=== PATIENT | female | born 1960 | race Caucasian/White ===

== ENCOUNTER 2018-06-26 12:49 | Inpatient (IN) | payer BC ==
[2018-06-26] MEDS ORDERED: NA CHLORIDE 0.9% 1,000 ML ONE (14:01)
[2018-06-26] MEDS ORDERED: ONDANSETRON 4 MG/2 ML VIAL ONE (14:05)
[2018-06-26 14:14] LABS: Absolute Lymphocytes (CBC) 1.6 K/uL (0.7-4.9); Absolute Monocytes 0.9 K/uL (0.1-1.3); Absolute Neutrophil 6.7 K/uL (1.8-8.0); Basophils % 0.6 % (0-1.3); Eosinophils % 0.2 % (0-4.4); Hematocrit 38.2 % (36.0-45.0); Lymphocytes % 17.2 % (15.3-44.8); MCH 31.3 pg (27.0-35.0); MCV 91.9 fL (80-100); MPV 8.1 fL (7.6-11.3); Monocytes % 9.5 % (3.3-12.3); RBC Red Blood Cell Count 4.15 M/uL (3.86-4.86)
[2018-06-26 14:18] LABS: Protime INR 1.11
[2018-06-26 14:20] LABS: Urine Bacteria 20-50 /HPF (<20); Urine Culture Reflex Order REFLEXED; Urine RBC <5 /HPF (NONE SEEN)
[2018-06-26 14:35] LABS: ALT/SGPT 37 U/L (12-78); AST/SGOT 19 U/L (15-37); Albumin 2.4 g/dL (3.4-5.0); Alkaline Phosphatase 119 U/L (45-117); BUN Blood Urea Nitrogen 15 mg/dL (7-18); Bicarbonate 25 mmol/L (21-32); Bilirubin Direct 0.1 mg/dL (0-0.2); Bilirubin Total 0.4 mg/dL (0.2-1.0); Creatine Phosphokinase 48 U/L (26-192); Glucose Level 331 mg/dL (74-106); Lipase 106 U/L (73-393); Potassium 3.2 mmol/L (3.5-5.1); Protein, Total 7.1 g/dL (6.4-8.2); Sodium Level 128 mmol/L (136-145); Troponin (Emerg Dept Use Only) < 0.02 ng/mL (0.0-0.045)
--- NOTE | 2018-06-26 14:38 | RAD REPORT ---
EXAM DESCRIPTION: RAD - Chest Single View - 06/26/2018 2:27 pm CLINICAL HISTORY: Delays, shortness of breath COMPARISON: None. TECHNIQUE: AP portable chest image was obtained 1409 hours . FINDINGS: Lung volumes are low. Linear stranding in each base is favored to be atelectasis. Scarring is possible as well. Trachea is midline. Heart and vasculature are normal. No measurable pleural eff usion and no pneumothorax. No acute bony abnormality seen. No acute aortic findings suspected. IMPRESSION: No acute cardiopulmonary process. Scarring or atelectasis present in each lung base.
[2018-06-26 14:58] LABS: Blood Morphology Comment NOT SEEN (NOT SEEN); Platelet Estimate ADEQ; Platelets, Giant NOTED; Polychromasia SLIGHT
[2018-06-26] MEDS ORDERED: INSULIN -REGULAR HUMAN 50 UNIT/0.5 ML ML ONE (15:02)
[2018-06-26 15:06] LABS: Urine Blood 2+ (NEG); Urine Glucose 2+ (NEG); Urine Protein 2+ (NEG); Urine Specific Gravity 1.015 (1.005-1.030)
--- NOTE | 2018-06-26 15:35 | ER ---
Nurse's Notes [facility] Name: Linda Jeffries Age: 58 yrs Sex: Female : 1960 Arrival Date: 06/26/2018 Time: 12:52 Bed 19 Private MD: Noah Justin Diagnosis: Acute tubulo-interstitial nephritis;Hyperglycemia, unspecified Presentation: 06/26 13:07 Presenting complaint: Patient states: Sent by Dr. Justin's office for possible DKA. Pt ss reports she has a really bad UTI/ Kidney infection and has a large amount of ketones in her urine. Pt was sent over for STAT lab work that was obtained and had Rocephin 1G IM at PCP's office. Transition of care: patient was not received from another setting of care. Onset of symptoms was June 22, 2018. Risk Assessment: Do you want to hurt yourself or someone else? Patient reports no desire to harm self or others. Initial Sepsis Screen: Does the patient meet any 2 criteria? RR > 20 per min. HR > 90 bpm. Does the patient have a suspected source of infection? Yes: Dysuria/Frequency/Urgency/UTI. Care prior to arrival: None. 13:07 Method Of Arrival: Ambulatory ss 13:07 Acuity: RADHA 2 ss Historical: - Allergies: 13:09 PENICILLINS; ss 13:09 Sulfa (Sulfonamide Antibiotics); ss - PMHx: 16:51 Diabetes - IDDM; hb - Immunization history:: Adult Immunizations up to date. - Social history:: Smoking status: Patient/guardian denies using tobacco. - Ebola Screening: : Patient denies exposure to infectious person Patient denies travel to an Ebola-affected area in the 21 days before illness onset. Screenin:45 Abuse screen: Denies threats or abuse. Denies injuries from another. Nutritional ca1 screening: No deficits noted. Tuberculosis screening: No symptoms or risk factors identified. Fall Risk Total Bustos Fall Scale indicates No Risk (0-24 pts). Assessment: 13:30 General: Appears in no apparent distress. Behavior is calm, cooperative. Pain: Denies ca1 pain. Neuro: Level of Consciousness is awake, alert, obeys commands, Oriented to person, place, time, situation. Cardiovascular: Capillary refill < 3 seconds Patient's skin is warm and dry. Respiratory: Airway is patent Respiratory effort is even, unlabored, Respiratory pattern is regular, symmetrical. GI: No signs and/or symptoms were reported involving the gastrointestinal system. : No signs and/or symptoms were reported regarding the genitourinary system. EENT: No signs and/or symptoms were reported regarding the EENT system. Derm: Skin is intact, is healthy with good turgor. Musculoskeletal: No signs and/or symptoms reported regarding the musculoskeletal system. 14:30 Reassessment: Patient appears in no apparent distress at this time. No changes from hb previously documented assessment. Patient and/or family updated on plan of care and expected duration. Pain level reassessed. Patient is alert, oriented x 3, equal unlabored respirations, skin warm/dry/pink. 15:30 Reassessment: Patient appears in no apparent distress at this time. No changes from hb previously documented assessment. Patient and/or family updated on plan of care and expected duration. Pain level reassessed. Patient is alert, oriented x 3, equal unlabored respirations, skin warm/dry/pink. Admission ordered, awaiting room assignment at this time. Family remains at [facility]. Vital Signs: 13:09 BP 127 / 85; Pulse 111; Resp 21; Temp 98.0(O); Pulse Ox 98% on R/A; Weight 93.89 kg; ss Height 5 ft. 7 in. (170.18 cm); Pain 8/10; 14:07 BP 112 / 70; Pulse 101; Resp 18; Pulse Ox 98% on R/A; ca1 15:30 BP 129 / 78; Pulse 96; Resp 18; Pulse Ox 94% on R/A; ca1 16:10 BP 128 / 82; Pulse 80; Resp 15; Pulse Ox 100% on R/A; Pain 0/10; hb 13:09 Body Mass Index 32.42 (93.89 kg, 170.18 cm) ED Course: 12:52 Patient arrived in ED. sb2 12:52 Noah Justin MD is Private Physician. sb2 13:09 Triage completed. ss 13:09 Arm band placed on right wrist. ss 13:11 Deandre Tee MD is Attending Physician. gs 13:15 Joanna Simons, RN is Primary Nurse. hb 13:30 Patient has correct armband on for positive identification. Placed in gown. Bed in low hb position. Call light in reach. Side rails up X 1. 13:55 Initial lab(s) drawn, by ma, sent to lab. First set of blood cultures drawn by ma. 3 Inserted saline lock: 20 gauge in right antecubital area, using aseptic technique. Blood collected. 14:10 EKG done, by environmental sampling technician. reviewed by Deandre Tee MD. 3 14:18 Second set of blood cultures drawn by me, by venipuncture 23G to right ac. 3 14:25 Chest Single View XRAY In Process Unspecified. EDMS 15:30 No provider procedures requiring assistance completed. Patient admitted, IV remains in hb place. 15:33 Cristóbal Garnett MD is Hospitalizing Provider. Administered Medications: 13:45 Drug: NS 0.9% 1000 ml Route: IV; Rate: 1 bolus; Site: right antecubital; ca1 15:30 Follow up: Response: No adverse reaction; IV Status: Completed infusion hb 13:59 Drug: Zofran 4 mg Route: IVP; Site: right antecubital; hb 14:29 Follow up: Response: No adverse reaction ca1 14:57 Drug: Insulin Regular Human 5 units {Co-Signature: maty (Joanna Simons RN).} Route: ca1 Sub-Q; Site: left upper arm; 15:58 Follow up: Response: No adverse reaction; Blood sugar is lowered hb Point of Care Testing: Blood Glucose: 14:03 Blood Glucose: 328 mg/dL; ca1 Ranges: Outcome: 15:34 Decision to Hospitalize by Provider. 17:15 Admitted to Tele accompanied by tech, family with patient, via stretcher, with chart. hb 17:15 Condition: stable 17:15 Instructed on the need for admit, Demonstrated understanding of instructions. 17:20 Patient left the ED. hb Signatures: Dispatcher [employer] EDAR Faiza Silva RN RN Joanna Simons RN RN Sabine Rousseau [facility] Deandre Tee MD MD Rehana Elias [facility] Angelic Reyes 3 Ros Asif RN RN ca1 Joanna rutledge Corrections: (The following items were deleted from the chart) 14:48 13:45 Fall Risk Total Bustos Fall Scale indicates High Risk Score (45 or more points). ca1 Fall prevention measures have been instituted. Side Rails Up X 2 Frequent Obs/Assessments Occuring Family Present and informed to notify staff if the need to leave the bedside As available patient and family educated on Fall Prevention Program and Strategies. ca1
--- NOTE | 2018-06-26 15:35 | EDPHYS ---
Physician Documentation [facility] Name: Linda Jeffries Age: 58 yrs Sex: Female : 1960 Arrival Date: 06/26/2018 Time: 12:52 Bed 19 Private MD: Noah Justin ED Physician Deandre Tee HPI: 06/26 15:18 This 58 yrs old Female presents to ER via Ambulatory with complaints of gs DIABETIC PROBLEM. 15:18 The patient complains of pain in the left low back and right low back. Onset: The gs symptoms/episode began/occurred gradually, 4 day(s) ago, and became worse and became persistent. Modifying factors: The symptoms are alleviated by nothing. the symptoms are aggravated by nothing. Associated signs and symptoms: Pertinent positives: dysuria, fever, nausea, vomiting. Severity of pain: At its worst the pain was moderate in the emergency department the pain is unchanged. The patient has not experienced similar symptoms in the past. The patient has been recently seen by a physician: the patient's primary care provider. Historical: - Allergies: 13:09 PENICILLINS; ss 13:09 Sulfa (Sulfonamide Antibiotics); ss - PMHx: 16:51 Diabetes - IDDM; hb - Immunization history:: Adult Immunizations up to date. - Social history:: Smoking status: Patient/guardian denies using tobacco. - Ebola Screening: : Patient denies exposure to infectious person Patient denies travel to an Ebola-affected area in the 21 days before illness onset. ROS: 15:18 All other systems are negative. gs Exam: 15:18 Head/Face: Normocephalic, atraumatic. Eyes: Pupils equal round and reactive to light, gs extra-ocular motions intact. Lids and lashes normal. Conjunctiva and sclera are non-icteric and not injected. Cornea within normal limits. Periorbital areas with no swelling, redness, or edema. ENT: Nares patent. No nasal discharge, no septal abnormalities noted. Tympanic membranes are normal and external auditory canals are clear. Oropharynx with no redness, swelling, or masses, exudates, or evidence of obstruction, uvula midline. Mucous membranes moist. Neck: Trachea midline, no thyromegaly or masses palpated, and no cervical lymphadenopathy. Supple, full range of motion without nuchal rigidity, or vertebral point tenderness. No Meningismus. Chest/axilla: Normal chest wall appearance and motion. Nontender with no deformity. No lesions are appreciated. 15:18 Respiratory: Lungs have equal breath sounds bilaterally, clear to auscultation and percussion. No rales, rhonchi or wheezes noted. No increased work of breathing, no retractions or nasal flaring. Abdomen/GI: Soft, non-tender, with normal bowel sounds. No distension or tympany. No guarding or rebound. No evidence of tenderness throughout. Skin: Warm, dry with normal turgor. Normal color with no rashes, no lesions, and no evidence of cellulitis. MS/ Extremity: Pulses equal, no cyanosis. Neurovascular intact. Full, normal range of motion. Neuro: Awake and alert, GCS 15, oriented to person, place, time, and situation. Cranial nerves II-XII grossly intact. Motor strength 5/5 in all extremities. Sensory grossly intact. Cerebellar exam normal. Normal gait. 15:18 Constitutional: The patient appears alert, awake. 15:18 Cardiovascular: Rate: tachycardic, Rhythm: regular, Pulses: no pulse deficits are appreciated. 15:18 Back: CVA tenderness, that is moderate, is noted on the right, is noted on the left. 15:18 ECG was reviewed by the Attending Physician. Vital Signs: 13:09 BP 127 / 85; Pulse 111; Resp 21; Temp 98.0(O); Pulse Ox 98% on R/A; Weight 93.89 kg; ss Height 5 ft. 7 in. (170.18 cm); Pain 8/10; 14:07 BP 112 / 70; Pulse 101; Resp 18; Pulse Ox 98% on R/A; ca1 15:30 BP 129 / 78; Pulse 96; Resp 18; Pulse Ox 94% on R/A; ca1 16:10 BP 128 / 82; Pulse 80; Resp 15; Pulse Ox 100% on R/A; Pain 0/10; hb 13:09 Body Mass Index 32.42 (93.89 kg, 170.18 cm) ss MDM: 13:28 Patient medically screened. gs 15:18 Differential diagnosis: pyelonephritis, UTI, pancreatitis, sepsis. Data reviewed: vital gs signs, nurses notes. Counseling: I had a detailed discussion with the patient and/or guardian regarding: the historical points, exam findings, and any diagnostic results supporting the discharge/admit diagnosis, lab results, radiology results, the need for further work-up and treatment in the hospital. Response to treatment: the patient's symptoms have mildly improved after treatment, and as a result, I will admit patient. 06/26 13:27 Order name: Basic Metabolic Panel 06/26 13:27 Order name: Blood Culture Adult (2) 06/26 13:27 Order name: CBC with Diff 06/26 13:27 Order name: CPK; Complete Time: 14:40 06/26 13:27 Order name: Lactate; Complete Time: 14:40 06/26 13:27 Order name: LFT's; Complete Time: 14:40 06/26 13:27 Order name: Lipase; Complete Time: 14:40 06/26 13:27 Order name: Procalcitonin; Complete Time: 15:12 06/26 13:27 Order name: Protime (+inr); Complete Time: 14:40 06/26 13:27 Order name: Troponin (emerg Dept Use Only); Complete Time: 14:40 06/26 13:27 Order name: Urine Microscopic Only; Complete Time: 14:40 06/26 13:28 Order name: Basic Metabolic Panel; Complete Time: 14:40 [facility] 06/26 13:28 Order name: Blood Culture [facility] 06/26 13:35 Order name: Urine Dipstick--Ancillary (enter results); Complete Time: 15:12 06/26 13:27 Order name: Chest Single View XRAY; Complete Time: 14:40 06/26 14:18 Order name: Manual Differential [facility] 06/26 14:28 Order name: Urine Culture [facility] 06/26 15:54 Order name: CBC with Automated Diff EDMS 06/26 15:54 Order name: CBC with Automated Diff EDMS 06/26 15:54 Order name: CBC with Automated Diff EDMS 06/26 15:54 Order name: CBC with Automated Diff EDMS 06/26 15:54 Order name: Comprehensive Metabolic Panel [facility] 06/26 15:54 Order name: Comprehensive Metabolic Panel [facility] 06/26 15:54 Order name: Comprehensive Metabolic Panel [facility] 06/26 15:54 Order name: Comprehensive Metabolic Panel [facility] 06/26 16:12 Order name: Glucose, Ancillary Testing ED[facility] 06/26 16:12 Order name: Glucose, Ancillary Testing EDMS 06/26 13:27 Order name: Fingerstick Glucose; Complete Time: 14:07 06/26 13:27 Order name: Accucheck; Complete Time: 13:59 gs 06/26 13:27 Order name: Cardiac monitoring; Complete Time: 13:59 06/26 13:27 Order name: EKG - Nurse/Tech; Complete Time: 14:47 06/26 13:27 Order name: IV Saline Lock - Large Bore; Complete Time: 13:59 gs 06/26 13:27 Order name: Labs collected and sent; Complete Time: 13:59 gs 06/26 13:27 Order name: O2 Per Protocol; Complete Time: 13:59 06/26 13:27 Order name: O2 Sat Monitoring; Complete Time: 14:01 06/26 13:27 Order name: Urine Dipstick-Ancillary (obtain specimen); Complete Time: 13:59 06/26 15:54 Order name: Consistent Carb (ADA) 1800 Phill EDMS EC:18 Rate is 99 beats/min. Rhythm is regular. GA interval is normal. QRS interval is normal. gs QT interval is normal. T waves are Inverted. Clinical impression: NSR w/ Non-specific ST/T Changes. Interpreted by me. Administered Medications: 13:45 Drug: NS 0.9% 1000 ml Route: IV; Rate: 1 bolus; Site: right antecubital; ca1 15:30 Follow up: Response: No adverse reaction; IV Status: Completed infusion hb 13:59 Drug: Zofran 4 mg Route: IVP; Site: right antecubital; hb 14:29 Follow up: Response: No adverse reaction ca1 14:57 Drug: Insulin Regular Human 5 units {Co-Signature: hb (Joanna Simons RN).} Route: ca1 Sub-Q; Site: left upper arm; 15:58 Follow up: Response: No adverse reaction; Blood sugar is lowered hb Point of Care Testing: Blood Glucose: 14:03 Blood Glucose: 328 mg/dL; ca1 Ranges: Critical Glucose Levels:Adult <50 mg/dl or >400 mg/dl <40 mg/dl or >180 mg/dl Disposition: 06/26/18 15:34 Hospitalization ordered by Cristóbal Garnett for Observation. Preliminary diagnosis are Acute tubulo-interstitial nephritis, Hyperglycemia, unspecified. - Bed requested for Telemetry/MedSurg (observation). - Status is Observation. hb - Condition is Stable. - Problem is new. - Symptoms have improved. UTI on Admission? Yes Signatures: Dispatcher [employer] EDKS Yessenia Auguste RN RN Faiza Silva RN RN Joanna Simons RN RN Deandre Tee MD MD Ros Asif RN RN [facility] Joanna Simons RN Corrections: (The following items were deleted from the chart) 15:34 15:34 Hospitalization Ordered by Cristóbal Garnett MD for Inpatient Admission. Preliminary gs diagnosis is Acute tubulo-interstitial nephritis; Hyperglycemia, unspecified. Bed requested for Telemetry/MedSurg (Inpatient). Status is Inpatient Admission. Condition is Stable. Problem is new. Symptoms have improved. UTI on Admission? Yes. gs 16:33 15:34 06/26/2018 15:34 Hospitalization Ordered by Cristóbal Garnett MD for Observation. dw Preliminary diagnosis is Acute tubulo-interstitial nephritis; Hyperglycemia, unspecified. Bed requested for Telemetry/MedSurg (observation). Status is Observation. Condition is Stable. Problem is new. Symptoms have improved. UTI on Admission? Yes. gs 17:20 16:33 06/26/2018 15:34 Hospitalization Ordered by Cristóbal Garnett MD for Observation. hb Preliminary diagnosis is Acute tubulo-interstitial nephritis; Hyperglycemia, unspecified. Bed requested for Telemetry/MedSurg (observation). Status is Observation. Condition is Stable. Problem is new. Symptoms have improved. UTI on Admission? Yes. dw
[2018-06-26] MEDS ORDERED: ACETAMINOPHEN 500 MG TAB PO PRN (15:48)
[2018-06-26] MEDS: NA CHLORIDE 0.9% 1,000 ML IV SCH (18:09)
[2018-06-26] MEDS: INSULIN -REGULAR HUMAN 50 UNIT/0.5 ML ML SQ SCH ×2 (18:10→21:26)
[2018-06-26] MEDS: ONDANSETRON 4 MG/2 ML VIAL IV PRN (18:10)
[2018-06-26] MEDS: CEFTRIAXONE/SWI 1gm 1 GM/10 ML SYR IVP SCH (18:10)
[2018-06-26] MEDS: ENOXAPARIN 40 MG/0.4 ML SQ SCH (18:10)
[2018-06-26] MEDS ORDERED: POTASSIUM CL SA 10 MEQ TAB PO ONE (19:12)
[2018-06-26] MEDS ORDERED: KCL 20 MEQ/100 mL IVPB 20 MEQ/100 ML BAG IV SCH (20:00)
[2018-06-26] MEDS ORDERED: KETOROLAC 30 MG/ML INJ IV PRN (20:26)
[2018-06-26] MEDS ORDERED: INFLUENZA VACCINE (for 3y+) 0.5 ML DOSE IMVAC ONE (21:00)
[2018-06-27] MEDS: NA CHLORIDE 0.9% 1,000 ML IV SCH ×3 (01:04→22:00)
--- NOTE | 2018-06-27 02:13 | HP ---
Date of Admission: 06/26/2018 Chief Complaint: Abdominal pain, fever, chills. Primary Care Physician: Noah Justin M.D. History Of Present Illness: The patient is a 58-year-old female with past medical history of diabete s, insulin requiring, depression, hyperlipidemia, and hypertension, comes in with sudden onset of fev er, chills, abdominal pain in bilateral flanks, nausea, no vomiting, and high fevers as high as 102. The patient denies any dysuria or hematuria, however, has had history of multiple recurrent UTIs in the past, has seen Urology as well. The patient's symptoms are constant, moderate, and progressively worsening. Therefore, came into the hospital for further evaluation. Upon arrival, the patient was slightly tachycardic. Her workup revealed normal WBC count. She did have some mild electrolyte abn ormalities; however, her procalcitonin was elevated. The patient's urine was positive and showed UTI . She was started on antibiotics and referred for admission. The patient was seen in the ER. She w as awake, alert, and oriented x3, in mild distress. Past Medical History: Diabetes mellitus type 2, insulin requiring, depression, hyperlipidemia, and h ypertension. Past Surgical History: Hysterectomy. Allergies: TO PENICILLIN AND SULFA. Medications: List reviewed. Social History: The patient denies any tobacco use, alcohol use, or illicit drug use. The patient i s and currently employed, works in an office. Has good social support. Independent in her a ctivities of daily living. Family History: The patient denies history of premature coronary artery disease. Review of Systems: A 10-point system reviewed, negative except as per HPI. Physical Examination: Vital Signs: Blood pressure 127/85, pulse 111, respirations 21, temperature 98, and O2 98% on room a ir. General: Awake, alert, and oriented x3, ill-appearing, obese female, in some mild distress. HEENT: Normocephalic, atraumatic. PERRLA. EOMI. Moist mucous membranes. Oropharynx is clear. Co njunctivae anicteric. Neck: Supple. No JVD. Trachea midline. CV: S1, S2. Sinus tachycardia. No murmurs. Peripheral pulses present bilaterally. Respiratory: Clear to auscultation bilaterally. No wheezing or stridor. No use of accessory muscle s. Gastrointestinal: Abdomen is soft. Tenderness to palpation. No rebound or guarding. Bowel sounds are positive. The patient does have some flank tenderness bilaterally. Extremities: No clubbing, cyanosis, or edema. No calf tenderness. Neuro: Cranial nerves 2-12 intact grossly. No focal neurological deficit. Speech is normal. Stren gth is 5/5 in bilateral upper and lower extremities. Skin: No rashes. Normal skin turgor. Psych: Mood is okay. Affect is full. Insight and judgment are good. Laboratory Data: UA shows negative nitrite, 1+ leukocyte esterase, less than 5 rbc's, greater than 5 0 wbc's, 20-50 urine bacteria, 2+ glucose, and 2+ protein. Sodium 128, potassium 3.2, chloride 94, C O2 25, BUN 15, creatinine 1, and glucose 331. Lactate 1.9, calcium 8.7, troponin less than 0.02, alb umin 2.4, lipase 106, and procalcitonin 1.71. INR 1.11. WBC 9.2, H and H 13 and 38.2, platelets 236 , and neutrophils 72%. EKG normal sinus rhythm, rate of 99, some nonspecific T-wave, ST changes. est x-ray personally reviewed shows no acute cardiopulmonary process, scarring or atelectasis present in each lung base. Assessment And Plan: A 58-year-old female with: 1.Systemic inflammatory response syndrome. The patient has a fever of 102, tachypneic at 21 breaths per minute, tachycardic at 111 beats per minute. Normal WBC count; however, procalcitonin is elevat ed at 1.71. Lactate is normal. Source of infection is UTI, pyelonephritis. We will watch for signs of sepsis. We will continue with IV fluid resuscitation, IV antibiotics, and obtain pancultures. 2.Pyelonephritis, acute. Continue with Rocephin and follow up on urine cultures. 3.Hyponatremia. We will start on IV fluids and monitor. 4.Hypokalemia. We will replace and monitor. Check magnesium level. 5.Severe protein-calorie malnutrition. Albumin is 2.4. 6.Diabetes mellitus type 2 with hyperglycemia. We will continue with sliding scale insulin. Resume home dose, not in DKA. 7.Essential hypertension. Resume home medications as appropriate. 8.Major depressive disorder, in remission. Continue SSRI. 9.Hyperlipidemia. Continue statin. 10.Obesity, BMI 32.4. 11.GI and DVT prophylaxis addressed. Admit the patient to Med-Surg, place as inpatient. Length of stay is greater than 2 minutes. NAHOMY Voice ID: [id number]
[2018-06-27 06:01] LABS: Absolute Lymphocytes (CBC) 1.6 K/uL (0.7-4.9); Absolute Monocytes 0.9 K/uL (0.1-1.3); Absolute Neutrophil 3.9 K/uL (1.8-8.0); Basophils % 0.6 % (0-1.3); Eosinophils % 1.4 % (0-4.4); Lymphocytes % 24.3 % (15.3-44.8); MCH 31.3 pg (27.0-35.0); MPV 8.2 fL (7.6-11.3); RBC Red Blood Cell Count 3.73 M/uL (3.86-4.86)
[2018-06-27 06:15] LABS: Bilirubin Total 0.3 mg/dL (0.2-1.0); Protein, Total 5.8 g/dL (6.4-8.2)
--- NOTE | 2018-06-27 06:59 | EKG ---
Test Date: 2018-06-26 Test Time: 14:05:56 Radiophone Operator: SUHAS MEASUREMENT RESULTS: Intervals: Rate: 99 CA: 158 QRSD: 82 QT: 342 QTc: 438 [place]: P: 25 CA: 158 QRS: 47 T: 17 INTERPRETIVE STATEMENTS: Normal sinus rhythm Possible Left atrial enlargement Nonspecific T wave abnormality Abnormal ECG No previous ECG available for comparison Electronically Signed On 06-27-18 06:59:07 [employer]ORY HOLE TENDER by Ayo Blair
[2018-06-27] MEDS: INSULIN -REGULAR HUMAN 50 UNIT/0.5 ML ML SQ SCH ×4 (08:55→21:37)
[2018-06-27] MEDS: LISINOPRIL 20 MG TAB PO SCH (08:56)
[2018-06-27] MEDS: PIOGLITAZONE 15 MG TAB PO SCH (08:56)
[2018-06-27] MEDS: ENOXAPARIN 40 MG/0.4 ML SQ SCH (08:56)
[2018-06-27] MEDS: NEBIVOLOL HCL 5 MG TAB PO SCH (08:57)
[2018-06-27] MEDS: DULOXETINE 20 MG CAP PO SCH (08:57)
[2018-06-27] MEDS ORDERED: LIRAGLUTIDE SQ SCH (09:00)
[2018-06-27] MEDS ORDERED: HOME MED 1 EA UNK (Lisinopril [Lisinopril] 1 TAB) PO SCH (09:00)
[2018-06-27] MEDS: EZETIMIBE 10 MG TAB PO SCH (10:03)
[2018-06-27] MEDS: CEFTRIAXONE/SWI 1gm 1 GM/10 ML SYR IVP SCH (10:04)
[2018-06-27] MEDS: ONDANSETRON 4 MG/2 ML VIAL IV PRN (11:45)
--- NOTE | 2018-06-27 13:10 | PN ---
Date of Progress Note: 06/27/2018 Subjective: Patient seen and examined. Chart reviewed and case discussed with RN. The patient stat es her pain is significantly better, however, still has some left flank tenderness. Body aches are r esolving. Review of Systems: Negative except as above. Medications: List reviewed. Physical Examination: Vital Signs: Temperature 97.6, heart rate 93, blood pressure 144/76, respirations 16, O2 96% on room air. General: Awake, alert, oriented x3, not in any acute distress. Slightly ill-appearing female, obese . CV: S1, S2. Regular rate and rhythm. Peripheral pulses present. Respiratory: Moving air well bilaterally. No wheezing or stridor. Gastrointestinal: Abdomen is soft, nontender, nondistended. Positive bowel sounds. Left flank tend erness. Extremities: No clubbing, cyanosis, or edema. Neurologic: Nonfocal. Laboratory Data: Sodium 136, potassium 4, chloride 103, CO2 27, BUN 17, creatinine 0.8, glucose 223, calcium 8.2, magnesium 2, albumin 2. WBC 6.6, hemoglobin and hematocrit 7.7 and 34, platelets 250, neutrophils 59%. INR 1.11. Blood cultures pending. Urine culture shows no growth to date. Assessment: A 58-year-old female with: 1.Systemic inflammatory response syndrome. The patient now afebrile. No longer tachypneic or tachy cardic. WBC count is normal. Procalcitonin was elevated on admission. We will continue IV antibiot ics. Source of infection is pyelonephritis. Sepsis has been ruled out. 2.Acute pyelonephritis. We will continue with Rocephin. Urine culture showing no growth to date. The patient still has some left flank tenderness. We will await culture results. 3.Hyponatremia, corrected. 4.Hypokalemia, replaced. We will continue to monitor. 5.Severe protein-calorie malnutrition. Albumin is 2. 6.Diabetes mellitus type 2 with hyperglycemia. We will adjust sliding scale insulin. Monitor blood glucose levels. 7.Essential hypertension, stable. 8.Major depressive disorder, in remission. We will continue SSRI. 9.Mixed hyperlipidemia, statin. 10.Obesity, BMI 32.4. 11.Gastrointestinal and deep venous thrombosis prophylaxis addressed. Plan: Likely discharge in the next 24 to 48 hours depending on clinical response and culture results . SA/MODL Voice ID: [id number] Report ID: [id number]
[2018-06-28 06:00] LABS: Absolute Lymphocytes (CBC) 1.7 K/uL (0.7-4.9); Absolute Monocytes 0.6 K/uL (0.1-1.3); Absolute Neutrophil 3.7 K/uL (1.8-8.0); Basophils % 1.4 % (0-1.3); Eosinophils % 1.8 % (0-4.4); MCH 30.7 pg (27.0-35.0); MCV 91.4 fL (80-100); MPV 8.1 fL (7.6-11.3); Monocytes % 9.9 % (3.3-12.3); RBC Red Blood Cell Count 3.61 M/uL (3.86-4.86)
[2018-06-28 06:02] LABS: Albumin 1.9 g/dL (3.4-5.0); Bilirubin Total 0.3 mg/dL (0.2-1.0); Potassium 4.2 mmol/L (3.5-5.1); Protein, Total 5.7 g/dL (6.4-8.2)
[2018-06-28] MEDS: INSULIN -REGULAR HUMAN 50 UNIT/0.5 ML ML SQ SCH (07:30)
[2018-06-28] MEDS: NA CHLORIDE 0.9% 1,000 ML IV SCH (08:00)
[2018-06-28] MEDS: CEFTRIAXONE/SWI 1gm 1 GM/10 ML SYR IVP SCH (09:00)
[2018-06-28] MEDS: DULOXETINE 20 MG CAP PO SCH (09:00)
[2018-06-28] MEDS: ENOXAPARIN 40 MG/0.4 ML SQ SCH (10:04)
[2018-06-28] MEDS: LISINOPRIL 20 MG TAB PO SCH (10:05)
[2018-06-28] MEDS: PIOGLITAZONE 15 MG TAB PO SCH (10:05)
[2018-06-28] MEDS: EZETIMIBE 10 MG TAB PO SCH (10:05)
[2018-06-28] MEDS: NEBIVOLOL HCL 5 MG TAB PO SCH (10:06)
--- NOTE | 2018-06-29 07:20 | DS ---
Date of Discharge: 06/28/2018 Discharge Diagnoses: 1. Systemic inflammatory response syndrome, resolved. 2. Acute pyelonephritis. 3. Hyponatremia. 4. Hypokalemia. 5. Severe protein-calorie malnutrition. Albumin 2.4. 6. Diabetes mellitus type 2 with hyperglycemia. 7. Essential hypertension. 8. Major depressive disorder. 9. Hyperlipidemia. 10. Obesity. Body mass index 32.4. Hospital Course: The patient is a 58-year-old female, who comes in with abdominal pain, fever, chills, generalized weakness. The patient's white count was normal. However, she was tachycardic. Her UA was positive and she had elevated procalcitonin level. She was thought to have systemic inflammatory response syndrome. She was resuscitated with IV fluids and sepsis and did not develop sepsis. The patient was treated with IV fluids and IV antibiotics for her pyelonephritis. She did have some flank pain bilaterally, worse on the left. The patient did well over the course of the hospital stay. She did have some electrolyte abnormalities, which were corrected. She is a difficult-to- control diabetic and sees Dr. Hernandez with Endocrinology. Her blood cultures remained negative to date. Her urine culture did not show any growth. The patient's symptoms improved significantly. She did not have any further fever. She was afebrile. Her blood pressure was stable. The patient did not appear septic. The patient was then discharged home in a stable condition. Activity: As tolerated. Medications: As per medication reconciliation list. Follow up course of cefuroxime for acute pyelonephritis. Followup: Return to ER for worsening condition. Follow up with international trade compliance manager , Dr. Hernandez, in 2-4 weeks. Follow up with PCP in 2-3 days. Total Time Spent Discharging The Patient: 37 minutes. Physical Examination: General: Awake, alert, oriented, obese female. CV: S1, S2. No murmurs. Respiratory: Moving air well bilaterally. No wheezing. Gastrointestinal: Abdomen is soft, nontender, nondistended. Positive bowel sounds. Extremities: No clubbing, cyanosis, edema. Neurologic: Nonfocal. SA/MODL Voice ID: [id number] Report ID: [id number] [facility] HOSPITALJim
== END 2018-06-28 12:00 | disposition home or self-care (01) | DRG 689 ==
LOC: ER 12:49 → ERHOLD 15:50 → 2ND 16:53
PROVIDERS: ADMIT Family Medicine; ATTEND Family Medicine
DX: N10 Acute pyelonephritis (principal); E43 Unspecified severe protein-calorie malnutrition; E87.1 Hypo-osmolality and hyponatremia; Z79.4 Long term (current) use of insulin; F32.9 Major depressive disorder, single episode, unspecified; I10 Essential (primary) hypertension; Z88.0 Allergy status to penicillin; Z88.2 Allergy status to sulfonamides; E87.6 Hypokalemia; E11.65 Type 2 diabetes mellitus with hyperglycemia; E66.9 Obesity, unspecified; Z68.32 Body mass index [BMI] 32.0-32.9, adult; E78.2 Mixed hyperlipidemia
CPT/HCPCS: 36415; 71045; 80048; 80053; 80076; 81003; 81015; 82550; 82962; 83036; 83605; 83690; 83735; 84145; 84484; 85025; 85610; 87040; 87086; 87088; 93005; 94760; 94762; 96361; 96372; 96374; 99285; G0008; J0696; J1650; J2405; J7030; Q2035

== ENCOUNTER 2019-01-15 09:28 | Inpatient (IN) | payer BC ==
--- OUTSIDE RECORDS SUMMARY | 2019-01-15 09:48 | XMS REPORT ---
:1960 [facility] Address [address] [place] [address] Dr. Rosenthal [address] [place] [id number] Care Team Providers Name Role Phone Unavailable Unavailable Unavailable Problems This patient has no known problems. Allergies, Adverse Reactions, Alerts This patient has no known allergies or adverse reactions. Medications This patient has no known medications.
[2019-01-15] MEDS ORDERED: NA CHLORIDE 0.9% 1,000 ML ONE (10:32)
[2019-01-15] MEDS ORDERED: ONDANSETRON 4 MG/2 ML VIAL ONE ×2 (10:32→14:51)
[2019-01-15 10:48] LABS: Absolute Lymphocytes (CBC) 2.3 K/uL (0.7-4.9); Basophils % 0.9 % (0-1.3); Eosinophils % 2.5 % (0-4.4); Hematocrit 40.4 % (36.0-45.0); Lymphocytes % 35.8 % (15.3-44.8); MPV 8.5 fL (7.6-11.3); Monocytes % 6.4 % (3.3-12.3); RBC Red Blood Cell Count 4.44 M/uL (3.86-4.86)
[2019-01-15 10:53] LABS: Urine Bacteria 20-50 /HPF (<20); Urine RBC >50 /HPF (NONE SEEN)
[2019-01-15 10:54] LABS: Urine Culture Reflex Order REFLEXED
[2019-01-15 10:54] LABS: Urine Blood 2+ (NEG); Urine Glucose TRACE (NEG); Urine Protein 3+ (NEG); Urine Specific Gravity 1.015 (1.005-1.030)
[2019-01-15] MEDS ORDERED: KETOROLAC 30 MG/ML INJ ONE (10:56)
[2019-01-15] MEDS ORDERED: ACETAMINOPHEN 500 MG TAB ONE (10:56)
[2019-01-15 11:03] LABS: ALT/SGPT 26 U/L (12-78); AST/SGOT 13 U/L (15-37); Albumin 3.7 g/dL (3.4-5.0); BUN Blood Urea Nitrogen 28 mg/dL (7-18); Bicarbonate 27 mmol/L (21-32); Bilirubin Direct < 0.1 mg/dL (0-0.2); Bilirubin Total 0.3 mg/dL (0.2-1.0); Glucose Level 129 mg/dL (74-106); Lipase 1033 U/L (73-393); Potassium 5.2 mmol/L (3.5-5.1); Sodium Level 139 mmol/L (136-145)
[2019-01-15 11:05] LABS: Alkaline Phosphatase ND U/L (45-117)
--- NOTE | 2019-01-15 11:40 | RAD REPORT ---
EXAM DESCRIPTION: CT - Abdomen Pelvis Wo Contrast - 01/15/2019 11:28 am CLINICAL HISTORY: Abdominal pain, urinary tract recurrent infections, prior hysterectomy COMPARISON: CT imaging April 2015 TECHNIQUE: Axial [address] imaging of the abdomen and pelvis was performed without IV contrast. No IV contrast was given because of allergy, abnormal renal function, patient refusal or physician re quest. No oral contrast administered. All CT scans are performed using dose optimization technique as appropriate and may include automated exposure control or mA/KV adjustment according to patient size. FINDINGS: No suspicious findings in the lung bases. No pericardial thickening or effusion. Liver is borderline to mildly fatty infiltrated. No focal liver lesion on noncontrast imaging. Spleen and pancreas show no suspicious findings. Gallbladder and biliary tree are also without suspicious f inding. Gallstones can be occult on CT imaging. No hydronephrosis or suspicious renal mass. No significant adrenal finding. Isodense renal masses an d pyelonephritis cannot be excluded in the absence of IV contrast. Urinary bladder is fully contracte d precluding any accurate assessment of bladder wall thickening or edema. There is no bladder calculu s or gross evidence for a bladder mass. No dilated bowel loops or bowel wall thickening. No free air, free fluid or inflammatory stranding. N o hernia, mass or bulky lymphadenopathy. Uterus absent. Ovaries are absent or atrophic. No adnexal ab normality. Disc and bony degenerative changes are present. No acute or destructive bone process. IMPRESSION: Non-contrast enhanced CT abdomen and pelvis imaging show no significant or suspicious fi nding. Isodense renal masses and pyelonephritis are not excluded on noncontrast imaging. Urinary bladder is fully contracted limiting assessment of wall thickening or edema. Full overall assessment is limited is the absence of IV contrast.
[2019-01-15] MEDS ORDERED: Levofloxacin500mg IV 500 MG/100 ML BAG IV ONE (11:57)
--- NOTE | 2019-01-15 12:01 | RAD REPORT ---
EXAM DESCRIPTION: US - Abdomen Exam Limited - 01/15/2019 11:40 am COMPARISON: None. FINDINGS: Gallbladder size is normal. No gallstones, wall thickening or pericholecystic fluid. Small curvilinear focus of increased echogenicity is seen in the gallbladder wall fundus with posterior ac oustic enhancement. Common bile duct is normal with no common duct stone identified. IMPRESSION: No gallstones, sludge or significant gallbladder wall finding. Small focus of cholesterolosis in the fundal wall of the gallbladder. This is not of long-term signif icance. No biliary tree abnormality.
[2019-01-15 12:53] LABS: Blood Morphology Comment NOT SEEN (NOT SEEN); Platelet Estimate ADEQ; Toxic Granulation 1+
--- NOTE | 2019-01-15 13:59 | EDPHYS ---
Physician Documentation [facility] Name: Linda Jeffries Age: 58 yrs Sex: Female : 1960 Arrival Date: 01/15/2019 Time: 09:31 Bed 17 Private MD: Noah Justin ED Physician James Pena HPI: 01/15 18:16 This 58 yrs old Female presents to ER via Ambulatory with complaints of wa Urinary Problem, Abdominal Pain. 18:16 The patient presents with abdominal pain in the lower abdomen. Onset: The wa symptoms/episode began/occurred 5 day(s) ago. The symptoms do not radiate. Associated signs and symptoms: Pertinent positives: dysuria, nausea, Pertinent negatives: diarrhea, vomiting. The symptoms are described as achy. Modifying factors: The symptoms are alleviated by nothing, the symptoms are aggravated by urination. Severity of pain: At its worst the pain was moderate in the emergency department the pain is unchanged. The patient has experienced similar episodes in the past. The patient has been recently seen by a physician: the patient's primary care provider. states painful urination and abd pain. given rocephin shot by PMD and sent home with macrobid but symptoms worsening. . Historical: - Allergies: 09:49 PENICILLINS; sg 09:49 Sulfa (Sulfonamide Antibiotics); sg - Home Meds: 09:49 Lisinopril Oral [Active]; Bystolic oral oral [Active]; metformin 1,000 mg Oral TG24 2 sg tabs once daily [Active]; Starlix Oral [Active]; Victoza 2-Nathan subcutaneous subcutaneous [Active]; - PMHx: 09:49 Diabetes - IDDM; Hypertension; sg - PSHx: 09:49 Hysterectomy; Lumpectomy; sg - Immunization history:: Adult Immunizations not up to date. - Social history:: Smoking status: Patient/guardian denies using tobacco. - Ebola Screening: : Patient negative for fever greater than or equal to 101.5 degrees Fahrenheit, and additional compatible Ebola Virus Disease symptoms Patient denies exposure to infectious person Patient denies travel to an Ebola-affected area in the 21 days before illness onset No symptoms or risks identified at this time. - Family history:: not pertinent. - Hospitalizations: : No recent hospitalization is reported. ROS: 18:19 Constitutional: Negative for fever, chills, and weight loss, Eyes: Negative for injury, wa pain, redness, and discharge, ENT: Negative for injury, pain, and discharge, Neck: Negative for injury, pain, and swelling, Cardiovascular: Negative for chest pain, palpitations, and edema, Respiratory: Negative for shortness of breath, cough, wheezing, and pleuritic chest pain, MS/Extremity: Negative for injury and deformity, Skin: Negative for injury, rash, and discoloration, Neuro: Negative for headache, weakness, numbness, tingling, and seizure, Psych: Negative for depression, anxiety, suicide ideation, homicidal ideation, and hallucinations. 18:19 Abdomen/GI: Positive for abdominal pain, nausea, Negative for diarrhea, constipation. 18:19 Back: Positive for pain at rest, pain with movement, of the lumbar area, left low back and right low back. 18:19 : Positive for urinary symptoms, flank pain, urinary frequency, small amounts, burning with urination. Exam: 18:20 Constitutional: This is a well developed, well nourished patient who is awake, alert, wa and in no acute distress. Head/Face: Normocephalic, atraumatic. Eyes: Pupils equal round and reactive to light, extra-ocular motions intact. Lids and lashes normal. Conjunctiva and sclera are non-icteric and not injected. Cornea within normal limits. Periorbital areas with no swelling, redness, or edema. ENT: Nares patent. No nasal discharge, no septal abnormalities noted. Tympanic membranes are normal and external auditory canals are clear. Oropharynx with no redness, swelling, or masses, exudates, or evidence of obstruction, uvula midline. Mucous membranes moist. Neck: Trachea midline, no thyromegaly or masses palpated, and no cervical lymphadenopathy. Supple, full range of motion without nuchal rigidity, or vertebral point tenderness. No Meningismus. Chest/axilla: Normal chest wall appearance and motion. Nontender with no deformity. No lesions are appreciated. Cardiovascular: Regular rate and rhythm with a normal S1 and S2. No gallops, murmurs, or rubs. Normal PMI, no JVD. No pulse deficits. Respiratory: Lungs have equal breath sounds bilaterally, clear to auscultation and percussion. No rales, rhonchi or wheezes noted. No increased work of breathing, no retractions or nasal flaring. Skin: Warm, dry with normal turgor. Normal color with no rashes, no lesions, and no evidence of cellulitis. MS/ Extremity: Pulses equal, no cyanosis. Neurovascular intact. Full, normal range of motion. Neuro: Awake and alert, GCS 15, oriented to person, place, time, and situation. Cranial nerves II-XII grossly intact. Motor strength 5/5 in all extremities. Sensory grossly intact. Cerebellar exam normal. Normal gait. Psych: Awake, alert, with orientation to person, place and time. Behavior, mood, and affect are within normal limits. 18:20 Abdomen/GI: Inspection: abdomen appears normal, Bowel sounds: normal, in all quadrants, Palpation: soft, in all quadrants, mild abdominal tenderness, in all quadrants. 18:20 Back: CVA tenderness, that is mild, is noted bilaterally. 18:20 : Pelvic Exam: External exam: is normal, Speculum exam: os that is closed, discharge, white, scant. Vital Signs: 09:47 BP 135 / 88; Pulse 85; Resp 18; Temp 97.9; Pulse Ox 98% on R/A; Weight 97.07 kg (R); sg Height 5 ft. 8 in. (172.72 cm); Pain 10/10; 11:00 BP 117 / 84; Pulse 83; Resp 17; Temp 98.0(TE); Pulse Ox 99% on R/A; mh5 12:02 BP 114 / 92; Pulse 83; Resp 18; Temp 97.8(TE); Pulse Ox 100% on R/A; mh5 13:54 BP 129 / 75; Pulse 83; Resp 17; Temp 97.9(O); Pulse Ox 99% on R/A; mh5 14:41 BP 122 / 69; Pulse 81; Resp 17; Temp 97.7(O); Pulse Ox 97% on R/A; mh5 15:21 BP 124 / 74; Pulse 83; Resp 18 S; Temp 97.5(O); Pulse Ox 98% on R/A; Pain 4/10; aa5 09:47 Body Mass Index 32.54 (97.07 kg, 172.72 cm) MDM: 09:42 Patient medically screened. wa 18:21 Differential diagnosis: non-specific abd pain, Pyelonephritis, urinary tract infection. wa 18:22 Data reviewed: vital signs, nurses notes, lab test result(s), radiologic studies. Test wa interpretation: by ED physician or midlevel provider: labs noted for UTI and pancreatitis. CT abd/pelvis and RUQ US noted wnl. no gallstones or ductal dilatation. Response to treatment: the patient's symptoms have mildly improved after treatment. Physician consultation: Tootie Allred MD. Admission orders: after a detailed discussion of the patient's condition and case, the admit orders are written by me. Special discussion: admitted pt for IV abx as failed out pt tx. also elevated lipase consistent with pancreatitis. admitted for further eval. 01/15 10:14 Order name: Basic Metabolic Panel; Complete Time: 11:06 ia 01/15 10:14 Order name: CBC with Diff; Complete Time: 13:44 ia 01/15 10:14 Order name: Hepatic Function; Complete Time: 11: ia 01/15 10:14 Order name: Lipase; Complete Time: 11: ia 01/15 10:14 Order name: Urine Microscopic Only; Complete Time: 11: ia 01/15 10:16 Order name: Wet Prep; Complete Time: 13:44 ia 01/15 10:38 Order name: Urine Dipstick--Ancillary (enter results); Complete Time: 11:06 em1 01/15 10:59 Order name: Urine Culture [facility] 01/15 11:09 Order name: CT Abd/Pelvis - Without Contrast; Complete Time: 12:10 ia 01/15 11:09 Order name: US Abdomen Limited; Complete Time: 12:09 ia 01/15 12:27 Order name: GC (GONORR/CHLAMYDIA) Probe 01/15 12:53 Order name: Manual Differential; Complete Time: 13:44 [facility] 01/15 10:14 Order name: IV Saline Lock; Complete Time: 10:33 ia 01/15 10:14 Order name: Labs collected and sent; Complete Time: 10:33 ia 01/15 10:14 Order name: Urine Dipstick-Ancillary (obtain specimen); Complete Time: 10:33 ia 01/15 10:16 Order name: Pelvic Exam Setup; Complete Time: 12:29 ia Administered Medications: 10:27 Drug: NS 0.9% 1000 ml Route: IV; Rate: 1 bolus; Site: right antecubital; aa5 12:20 Follow up: IV Status: Completed infusion; IV Intake: 1000ml aa5 10:27 Drug: Zofran 2 mg Route: IVP; Site: right antecubital; aa5 11:15 Follow up: Response: No adverse reaction; Nausea is decreased aa5 10:40 Drug: TORadol 30 mg Route: IVP; Site: right antecubital; aa5 11:15 Follow up: Response: No adverse reaction; Pain is decreased aa5 10:40 Drug: Tylenol 1000 mg Route: PO; aa5 12:20 Follow up: Response: No adverse reaction aa5 12:20 Drug: LevaQUIN 500 mg Volume: 100 ml; Route: IVPB; Infused Over: 60 mins; Site: right aa5 antecubital; 13:30 Follow up: Response: No adverse reaction; IV Status: Completed infusion aa5 14:30 Drug: Zofran 4 mg Route: IVP; Site: right antecubital; aa5 14:45 Follow up: Response: No adverse reaction; Nausea is decreased aa5 14:35 Drug: D5-1/2 NS 1000 ml Route: IV; Rate: 100 ml/hr; Site: right antecubital; aa5 16:00 Follow up: IV Status: Infusion continued upon admission aa5 Point of Care Testing: Blood Glucose: 14:25 Blood Glucose: 84 mg/dL; aa5 14:25 MD notified. Pt states "I took victoza insulin this morning" aa5 Ranges: Critical Glucose Levels:Adult <50 mg/dl or >400 mg/dl <40 mg/dl or >180 mg/dl Disposition: 01/15/19 13:58 Hospitalization ordered by Tootie Allred for Inpatient Admission. Preliminary diagnosis are acute abdominal pain, acute UTI, acute pancreatitis. - Bed requested for Telemetry/MedSurg (Inpatient). - Status is Inpatient Admission. aa5 - Condition is Stable. - Problem is new. - Symptoms have improved. UTI on Admission? Yes Signatures: Dispatcher [employer] EDMS Pablo Dutta RN RN sg Martinez, Eric em1 Gypsy Parada RN RN aa5 James Pena MD MD ia Corrections: (The following items were deleted from the chart) 15:36 13:58 Hospitalization Ordered by Tootie Allred MD for Inpatient Admission. Preliminary em1 diagnosis is acute abdominal pain; acute UTI; acute pancreatitis. Bed requested for Telemetry/MedSurg (Inpatient). Status is Inpatient Admission. Condition is Stable. Problem is new. Symptoms have improved. UTI on Admission? Yes. ia 16:04 15:36 01/15/2019 13:58 Hospitalization Ordered by Tootie Allred MD for Inpatient aa5 Admission. Preliminary diagnosis is acute abdominal pain; acute UTI; acute pancreatitis. Bed requested for Telemetry/MedSurg (Inpatient). Status is Inpatient Admission. Condition is Stable. Problem is new. Symptoms have improved. UTI on Admission? Yes. em1
--- NOTE | 2019-01-15 13:59 | ER ---
Nurse's Notes [facility] Name: Linda Jeffries Age: 58 yrs Sex: Female : 1960 Arrival Date: 01/15/2019 Time: 09:31 Bed 17 Private MD: Noah Justin Diagnosis: acute abdominal pain;acute UTI;acute pancreatitis Presentation: 01/15 09:43 Presenting complaint: Patient states: I have a history of UTI's due to my Diabetes, sg this is what this feels like. I have lower abdominal and pelvic pain that is severe and is different than any other UTI i have had, Im worried that maybe there is stone involved this time. Was seen by my PCP yesterday and given a shot of rocephin and macrobid to take at home, but this pain has me worried. Reports n/v, denies fever/chills/diarrhea at this time. Transition of care: patient was not received from another setting of care. Onset of symptoms was January 15, 2019. Risk Assessment: Do you want to hurt yourself or someone else? Patient reports no desire to harm self or others. Initial Sepsis Screen: Does the patient meet any 2 criteria? No. Patient's initial sepsis screen is negative. Does the patient have a suspected source of infection? Yes: Dysuria/Frequency/Urgency/UTI. Care prior to arrival: None. 09:43 Method Of Arrival: Ambulatory 09:43 Acuity: RADHA 3 sg Historical: - Allergies: 09:49 PENICILLINS; sg 09:49 Sulfa (Sulfonamide Antibiotics); sg - Home Meds: 09:49 Lisinopril Oral [Active]; Bystolic oral oral [Active]; metformin 1,000 mg Oral TG24 2 sg tabs once daily [Active]; Starlix Oral [Active]; Victoza 2-Nathan subcutaneous subcutaneous [Active]; - PMHx: 09:49 Diabetes - IDDM; Hypertension; sg - PSHx: 09:49 Hysterectomy; Lumpectomy; sg - Immunization history:: Adult Immunizations not up to date. - Social history:: Smoking status: Patient/guardian denies using tobacco. - Ebola Screening: : Patient negative for fever greater than or equal to 101.5 degrees Fahrenheit, and additional compatible Ebola Virus Disease symptoms Patient denies exposure to infectious person Patient denies travel to an Ebola-affected area in the 21 days before illness onset No symptoms or risks identified at this time. - Family history:: not pertinent. - Hospitalizations: : No recent hospitalization is reported. Screenin:00 Abuse screen: Denies threats or abuse. Nutritional screening: No deficits noted. aa5 Tuberculosis screening: No symptoms or risk factors identified. Fall Risk None identified. Assessment: 10:00 General: Appears uncomfortable, Behavior is calm, cooperative. Pain: Complains of pain aa5 in pelvis Pain currently is 10 out of 10 on a pain scale. Quality of pain is described as sharp, stinging, Pain began 2-3 days ago. Is continuous. Neuro: Level of Consciousness is awake, alert, obeys commands, Oriented to person, place, time, situation. Cardiovascular: Heart tones S1 S2 present Rhythm is regular. Respiratory: Airway is patent Respiratory effort is even, unlabored, Respiratory pattern is regular, symmetrical. GI: Abdomen is round Bowel sounds present X 4 quads. Abdomen is tender to palpation in right lower quadrant and left lower quadrant Reports nausea. : Reports burning with urination, urgency, urinary frequency, Denies discharge. EENT: No signs and/or symptoms were reported regarding the EENT system. Derm: Skin is pink, warm \\T\\ dry. Musculoskeletal: Range of motion: intact in all extremities. 10:40 Reassessment: Patient is alert, oriented x 3, equal unlabored respirations, skin aa5 warm/dry/pink. Pt reports nausea has improved. . 11:15 Reassessment: Patient is alert, oriented x 3, equal unlabored respirations, skin aa5 warm/dry/pink. Pt currently denies nausea, reports pain is 4/10 on a pain scale. Pt states "the pain is much better now, I am not having the sharp pain anymore, is just sore" . 12:20 Reassessment: Patient is alert, oriented x 3, equal unlabored respirations, skin aa5 warm/dry/pink. Pain: Pain currently is 4 out of 10 on a pain scale. 12:20 Reassessment: Eliminations needs met, pt voided x 1 . aa5 14:25 Reassessment: Patient is alert, oriented x 3, equal unlabored respirations, skin aa5 warm/dry/pink. Pt reports nausea, MD notified. Pt notified of wait time for room assignment. . 14:45 Reassessment: Patient is alert, oriented x 3, equal unlabored respirations, skin aa5 warm/dry/pink. Patient states feeling better. Reports nausea has decreased . 15:30 Reassessment: Patient is alert, oriented x 3, equal unlabored respirations, skin aa5 warm/dry/pink. socks provided for comfort, elimination needs met, pt voided x 1. . Vital Signs: 09:47 BP 135 / 88; Pulse 85; Resp 18; Temp 97.9; Pulse Ox 98% on R/A; Weight 97.07 kg (R); sg Height 5 ft. 8 in. (172.72 cm); Pain 10/10; 11:00 BP 117 / 84; Pulse 83; Resp 17; Temp 98.0(TE); Pulse Ox 99% on R/A; mh5 12:02 BP 114 / 92; Pulse 83; Resp 18; Temp 97.8(TE); Pulse Ox 100% on R/A; mh5 13:54 BP 129 / 75; Pulse 83; Resp 17; Temp 97.9(O); Pulse Ox 99% on R/A; mh5 14:41 BP 122 / 69; Pulse 81; Resp 17; Temp 97.7(O); Pulse Ox 97% on R/A; mh5 15:21 BP 124 / 74; Pulse 83; Resp 18 S; Temp 97.5(O); Pulse Ox 98% on R/A; Pain 4/10; aa5 09:47 Body Mass Index 32.54 (97.07 kg, 172.72 cm) ED Course: 09:31 Patient arrived in ED. mr 09:32 Noah Justin MD is Private Physician. mr 09:42 James Pena MD is Attending Physician. wa 09:46 Triage completed. 09:50 Ros Asif RN is Primary Nurse. [facility] 10:02 Primary Nurse role handed off by Ros Asif RN aa5 10:02 Gypsy Parada RN is Primary Nurse. aa5 10:25 Initial lab(s) drawn, by ut, sent to lab. Inserted saline lock: 20 gauge in right aa5 antecubital area, using aseptic technique. Blood collected. 11:28 CT Abd/Pelvis - Without Contrast In Process Unspecified. EDMS 11:37 US Abdomen Limited In Process Unspecified. EDMS 11:44 Patient has correct armband on for positive identification. Placed in gown. Bed in low mh5 position. Side rails up X 1. Adult w/ patient. Warm blanket given. Pulse ox on. NIBP on. 11:45 Assist provider with pelvic exam: Set up pelvic tray. Patient tolerated well. [facility] 13:57 Tootie Allred MD is Hospitalizing Provider. wa 16:00 Patient admitted, IV remains in place. aa5 Administered Medications: 10:27 Drug: NS 0.9% 1000 ml Route: IV; Rate: 1 bolus; Site: right antecubital; aa5 12:20 Follow up: IV Status: Completed infusion; IV Intake: 1000ml aa5 10:27 Drug: Zofran 2 mg Route: IVP; Site: right antecubital; aa5 11:15 Follow up: Response: No adverse reaction; Nausea is decreased aa5 10:40 Drug: TORadol 30 mg Route: IVP; Site: right antecubital; aa5 11:15 Follow up: Response: No adverse reaction; Pain is decreased aa5 10:40 Drug: Tylenol 1000 mg Route: PO; aa5 12:20 Follow up: Response: No adverse reaction aa5 12:20 Drug: LevaQUIN 500 mg Volume: 100 ml; Route: IVPB; Infused Over: 60 mins; Site: right aa5 antecubital; 13:30 Follow up: Response: No adverse reaction; IV Status: Completed infusion aa5 14:30 Drug: Zofran 4 mg Route: IVP; Site: right antecubital; aa5 14:45 Follow up: Response: No adverse reaction; Nausea is decreased aa5 14:35 Drug: D5-1/2 NS 1000 ml Route: IV; Rate: 100 ml/hr; Site: right antecubital; aa5 16:00 Follow up: IV Status: Infusion continued upon admission aa5 Point of Care Testing: Blood Glucose: 14:25 Blood Glucose: 84 mg/dL; aa5 14:25 notified. Pt states "I took victoza insulin this morning" aa5 Ranges: Intake: 12:20 IV: 1000ml; Total: 1000ml. aa5 Outcome: 13:58 Decision to Hospitalize by Provider. ga 16:00 Admitted to Med/surg accompanied by tech, family with patient, via wheelchair, with aa5 chart, Report called to MARGE Tubbs 16:00 Condition: stable 16:00 Instructed on the need for admit, Demonstrated understanding of instructions. 16:04 Patient left the ED. aa5 Signatures: Dispatcher [employer] EDPalbo Wheat RN RN sg Rivera, Mary mr ParadaGypsy hurley RN RN aa5 Estela Soliman James Dill MD MD ga Ros Asif RN RN ca1 Corrections: (The following items were deleted from the chart) 20:10 16:35 IV Status: Infusion continued upon admission aa5 aa5
[2019-01-15] MEDS: NA CHLORIDE 0.9% 1,000 ML IV SCH ×2 (14:00→16:36)
[2019-01-15] MEDS ORDERED: D5 0.45 NS 1,000 ML IV ONE (14:57)
[2019-01-15] MEDS: INSULIN -REGULAR HUMAN 50 UNIT/0.5 ML ML SQ SCH ×2 (16:30→21:00)
--- NOTE | 2019-01-15 16:49 | P.HP ---
Certification for Inpatient Patient admitted to: Inpatient With expected LOS: >2 Midnights Patient will require the following post-hospital care: None Practitioner: I am a practitioner with admitting privileges, knowledge of patient current condition, hospital course, and medical plan of care. Services: Services provided to patient in accordance with Admission requirements found in Title 42 Section 412.3 of the Code of Federal Regulations Patient History Date of Service: 01/15/19 Primary Care Provider: Dr Denton Reason for admission: Abdominal Pain History of Present Illness: This is a 58-year-old female with a history of recurrent UTI and pyelonephritis who presented to the ED complaining of lower abdominal pain that has been worse since past couple of days. Patient was seen at the PCP office yesterday was given a shot of Rocephin along with Bactrim prescription to be picked up. Patient however has not picked up her Bactrim prescription and stated that she came to the ER due to worsening abdominal pain and got concerned that her UTIs getting worse. She initially thought she also has a stone that may be affecting her. Patient also complained of having nausea vomiting. Denies having any fever chills or any other associated symptoms at this time. Allergies Penicillins Allergy (Verified 06/26/18 16:49) Hives/Rash Sulfa (Sulfonamide Antibiotics) Allergy (Verified 06/26/18 16:49) Hives/Rash Home medications list reviewed: Yes - Past Medical/Surgical History Has patient received pneumonia vaccine in the past: No Diabetic: Yes -: diabetes -: right breast lumpectomy -: hysterectomy - Family History Family History: Reviewed- Non-Contributory - Social History Smoking Status: Never smoker Smoking therapy provided: No Patient receptive to therapy: No Alcohol use: No CD- Drugs: No Caffeine use: Yes Place of Residence: Home Review of Systems 10-point ROS is otherwise unremarkable Physical Examination - Vital Signs Temperature: 97.8 F Blood Pressure: 114/92 Pulse: 83 Respirations: 18 - Physical Exam General: Alert, In no apparent distress Respiratory: Clear to auscultation bilaterally, Normal air movement Cardiovascular: Regular rate/rhythm, Normal S1 S2 Gastrointestinal: Normal bowel sounds, Tenderness Musculoskeletal: No tenderness Integumentary: No rashes Neurological: Normal speech, Normal strength at 5/5 x4 extr, Normal tone Lymphatics: No axilla or inguinal lymphadenopathy - Studies Laboratory Data (last 24 hrs) 01/15/19 10:25: WBC 6.5, Hgb 13.4, Hct 40.4, Plt Count 281 01/15/19 10:25: Sodium 139, Potassium 5.2 H, BUN 28 H, Creatinine 1.25, Glucose 129 H, Total Bilirubin 0.3, AST 13 L, ALT 26, Alkaline Phosphatase ND, Lipase 1033 H Microbiology Data (last 24 hrs): 01/15/19 11:00 Cervical Wet Prep - Final Assessment and Plan - Problems (Diagnosis) (1) UTI (urinary tract infection) Current Visit: Yes Status: Acute Plan: Patient with recurrent history of pyelonephritis and UTI in the past. Failed outpatient therapy this time. -urine cultures collected blood cultures pending at this time -started on IV Rocephin at this time. Was given 1 time Rocephin at the PCPs office and was given a prescription for Bactrim which she has not filled -will continue on Rocephin and follow up with urine culture Qualifiers: Urinary tract infection type: acute cystitis Hematuria presence: without hematuria Qualified Code(s): N30.00 - Acute cystitis without hematuria (2) Abdominal pain Current Visit: Yes Status: Acute Plan: Abdominal pain most likely secondary to UTI versus other etiology -ultrasound the abdomen and CT scan of the abdomen negative at this time -patient does have elevated lipase most likely secondary to dehydration versus resolving pancreatitis -will keep patient NPO and fluids monitor patient closely. Qualifiers: Abdominal location: generalized Qualified Code(s): R10.84 - Generalized abdominal pain (3) Diabetes Current Visit: Yes Status: Chronic Plan: Insulin sliding scale and Accu-Chek Qualifiers: Diabetes mellitus type: type 2 Diabetes mellitus adjunct faculty for medical terminology insulin use: without long-term use Diabetes mellitus complication status: without complication Qualified Code(s): E11.9 - Type 2 diabetes mellitus without complications (4) HTN (hypertension) Current Visit: Yes Status: Chronic Plan: Stable will restart home medication Qualifiers: Hypertension type: essential hypertension Qualified Code(s): I10 - Essential (primary) hypertension Discharge Plan: Home Plan to discharge in: Greater than 2 days - Advance Directives Does patient have a Living Will: No Does patient have a Durable POA for Healthcare: No - Code Status/Comfort Care Code Status Assessed: Yes Critical Care: No
[2019-01-15] MEDS ORDERED: GLUCAGON 1 MG/VIAL IM PRN (17:08)
[2019-01-15] MEDS ORDERED: D50W 25 GM/50 ML SYRINGE IV PRN (17:08)
[2019-01-15] MEDS: CEFTRIAXONE/SWI 1gm 1 GM/10 ML SYR IVP SCH (17:50)
[2019-01-15] MEDS: ENOXAPARIN 40 MG/0.4 ML SQ SCH (17:50)
[2019-01-16] MEDS ORDERED: MORPHINE 4 MG/ML SYR IV PRN (00:05)
[2019-01-16] MEDS ORDERED: MORPHINE 2 MG/ML SYR IV PRN (00:15)
[2019-01-16] MEDS: NA CHLORIDE 0.9% 1,000 ML IV SCH ×2 (00:52→09:05)
[2019-01-16 06:08] LABS: Absolute Lymphocytes (CBC) 2.2 K/uL (0.7-4.9); Basophils % 1.3 % (0-1.3); Hematocrit 36.5 % (36.0-45.0); Lymphocytes % 45.1 % (15.3-44.8); MPV 8.8 fL (7.6-11.3); Monocytes % 6.2 % (3.3-12.3); RBC Red Blood Cell Count 4.04 M/uL (3.86-4.86)
[2019-01-16 06:14] LABS: Albumin 2.9 g/dL (3.4-5.0); Bilirubin Total 0.2 mg/dL (0.2-1.0); Potassium 4.5 mmol/L (3.5-5.1)
[2019-01-16 08:18] LABS: Blood Morphology Comment NOT SEEN (NOT SEEN); Platelet Estimate ADEQ
[2019-01-16] MEDS: INSULIN -REGULAR HUMAN 50 UNIT/0.5 ML ML SQ SCH ×2 (09:00→11:30)
[2019-01-16] MEDS: CEFTRIAXONE/SWI 1gm 1 GM/10 ML SYR IVP SCH (09:01)
[2019-01-16] MEDS: ENOXAPARIN 40 MG/0.4 ML SQ SCH (09:01)
--- NOTE | 2019-01-16 13:28 | P.SSS ---
Patient History Date of Service: 01/16/19 Primary Care Provider: Dr Denton Reason for admission: Abdominal Pain History of Present Illness: This is a 58-year-old female with a history of recurrent UTI and pyelonephritis who presented to the ED complaining of lower abdominal pain that has been worse since past couple of days. Patient was seen at the PCP office yesterday was given a shot of Rocephin along with Bactrim prescription to be picked up. Patient however has not picked up her Bactrim prescription and stated that she came to the ER due to worsening abdominal pain and got concerned that her UTIs getting worse. She initially thought she also has a stone that may be affecting her. Patient also complained of having nausea vomiting. Denies having any fever chills or any other associated symptoms at this time. Allergies Penicillins Allergy (Verified 06/26/18 16:49) Hives/Rash Sulfa (Sulfonamide Antibiotics) Allergy (Verified 06/26/18 16:49) Hives/Rash Home Medications: Duloxetine [Cymbalta *] 20 mg PO DAILY 01/15/19 Insulin Degludec/Liraglutide [Xultophy 100 Unit-3.6MG/ml Pen] 40 units SQ DAILY 01/15/19 Lisinopril 40 mg PO DAILY 01/15/19 Metformin ER [Glucophage ER*] 2,000 mg PO DAILY 01/15/19 Nateglinide [Starlix*] 30 mg PO TID 01/15/19 Phenazopyrididine [Pyridium*] 100 mg PO PRN 01/15/19 Doxycycline Monohydrate 100 mg PO BID #28 tablet 01/16/19 - Past Medical/Surgical History Has patient received pneumonia vaccine in the past: No Diabetic: Yes -: diabetes -: History of UTI- -: right breast lumpectomy -: hysterectomy - Family History Family History: Reviewed- Non-Contributory - Family History Mother Notes: DM Father -: Heart disease, Cancer - Social History Smoking Status: Never smoker Alcohol use: No CD- Drugs: No Caffeine use: Yes Place of Residence: Home Review of Systems 10-point ROS is otherwise unremarkable Physical Examination - Vital Signs Temperature: 97.8 F Blood Pressure: 128/81 Pulse: 92 Respirations: 18 Pulse Ox (%): 97 - Physical Exam General: Alert, In no apparent distress HEENT: Atraumatic, PERRLA, Mucous membr. moist/pink, EOMI, Sclerae nonicteric Neck: Supple, 2+ carotid pulse no bruit, No LAD, Without JVD or thyroid abnormality Respiratory: Clear to auscultation bilaterally, Normal air movement Cardiovascular: Regular rate/rhythm, Normal S1 S2 Gastrointestinal: Normal bowel sounds, No tenderness Musculoskeletal: No tenderness Integumentary: No rashes Lymphatics: No axilla or inguinal lymphadenopathy - Studies Microbiology Data (last 24 hrs): 01/15/19 11:00 Cervical Wet Prep - Final - Diagnosis (Problem(s)) (1) UTI (urinary tract infection) Status: Acute Qualifiers: Urinary tract infection type: acute cystitis Hematuria presence: without hematuria Qualified Code(s): N30.00 - Acute cystitis without hematuria (2) Abdominal pain Status: Acute Qualifiers: Abdominal location: generalized Qualified Code(s): R10.84 - Generalized abdominal pain (3) Diabetes Status: Chronic Qualifiers: Diabetes mellitus type: type 2 Diabetes mellitus watermaster insulin use: without watermaster use Diabetes mellitus complication status: without complication Qualified Code(s): E11.9 - Type 2 diabetes mellitus without complications (4) HTN (hypertension) Status: Chronic Qualifiers: Hypertension type: essential hypertension Qualified Code(s): I10 - Essential (primary) hypertension Treatment Summary: Overall during the hospital stay patient remained stable Patient was initially admitted to the hospital for urinary tract infection was found to have elevated lipase as well. Patient had a urine culture done here in the hospital which was negative for any growth. Patient has been on long- term antibiotics from his primary care doctor's office which might be the reason why her urine cultures negative for any acute growth making it falsely negative. Patient thus was switched over to oral doxycycline. Once her symptoms had resolved patient then was discharged home under stable condition. For elevated lipase patient has been taking Starlix for her diabetes which may be causing her lipase to be elevated. Patient's abdominal CT and ultrasound were negative for any acute abnormality and thus patient was discharged home under stable condition. Patient was asked to continue monitoring her diet regularly him to control her diabetes as well. Patient was asked to talk to her primary care doctor regarding switching her Starlix to another medication to control her diabetes. Patient demonstrate understanding and thus was discharged home under stable condition. - Disposition Condition: GOOD Diet: Regular Activity: Ad carolee
[2019-01-17 16:49] LABS: C.trachomatis RNA,TMA Not Detected (Not Detected)
== END 2019-01-16 13:54 | disposition home or self-care (01) | DRG 690 ==
LOC: ER 09:28 → ERHOLD 13:51 → 2ND 15:55
PROVIDERS: ADMIT Family Medicine; ATTEND Family Medicine
DX: N30.00 Acute cystitis without hematuria (principal); E11.9 Type 2 diabetes mellitus without complications; I10 Essential (primary) hypertension
CPT/HCPCS: 36415; 74176; 76705; 80048; 80053; 80076; 81003; 81015; 82962; 83690; 85025; 87040; 87086; 87088; 87210; 87490; 87590; 96361; 96365; 96375; 99285; J0696; J1650; J2270; J2405; J7030